=== PATIENT | male | born 1995 | race Caucasian/White ===

== ENCOUNTER 2017-12-03 17:09 | Emergency (ER) | payer OTHER ==
[2017-12-03] MEDS ORDERED: EPINEPHrine 1 MG/ML AMP IM STA (17:24)
[2017-12-03] MEDS ORDERED: DEXAMETHASONE 10 MG/ML VIAL PO STA (17:24)
--- NOTE | 2017-12-03 17:26 | ED Physician Documentation ---
History of Present Illness - Stated complaint Stated Complaint: BEE STING - LIP - Chief complaint Chief Complaint: Allergic Rx - History obtained from History obtained from: Patient - History of Present Illness Timing: Prior to arrival (40 minutes), Today - Additonal information Additional information: 22-year-old male was stung in the lip by a bee has massive swelling of his lip he is now developed red rash over his arms and chest and he is beginning to feel some constriction in his throat. He took 2 Benadryl with this. This happened approximately 40-60 minutes prior to coming to the emergency department. He has had some reaction to a bee sting when he was 11 years old. He is uncertain but the bee looked like it might be vespula vulgaris or the common wasp. Review of Systems Constitutional: denies: Fever Eyes: denies: Decreased vision Ears: denies: Ear pain Nose: denies: Rhinorrhea / runny nose, Congestion Throat: denies: Sore throat Cardiac: denies: Chest pain / pressure Respiratory: denies: Dyspnea, Cough GI: denies: Nausea, Vomiting PD PAST MEDICAL HISTORY - Present Medications Home Medications: Ambulatory Orders Medication Instructions Recorded Confirmed Epinephrine [Epipen 2-Cayden] 0.3 mg IJ ONCE PRN #2 auto.injct 12/03/17 PD ED PE NORMAL - Vitals Vital signs reviewed: Yes (hypertensive ) - General General: Alert and oriented X 3, No acute distress, Well developed/nourished - HEENT HEENT: Atraumatic, PERRL, EOMI, Other (obvious upper lip swelling is dramatic ) - Neck Neck: Supple, no meningeal sign, No bony TTP - Cardiac Cardiac: RRR, No murmur - Respiratory Respiratory: No respiratory distress, Other (fine wheezes bilaterally ) - Abdomen Abdomen: Soft, Non tender - Derm Derm: Normal color, Warm and dry, Other (urticaria is present on the limbs) - Extremities Extremities: No deformity - Neuro Neuro: No motor deficit, No sensory deficit Eye Opening: Spontaneous Motor: Obeys Commands Verbal: Oriented GCS Score: 15 - Psych Psych: Normal mood, Normal affect Results - Vitals Vitals: Vital Signs - 24 hr 12/03/17 17:19 Temperature 36.9 C Heart Rate 98 Respiratory 20 Rate Blood Pressure 158/83 H O2 Saturation 98 Oxygen O2 Source Room air PD MEDICAL DECISION MAKING - ED course Complexity details: considered differential, d/w patient ED course: This 22-year-old male has been envenomed by vespula vulgaris and has had a reaction to include massive swelling of the upper lip, a whole body rash and some fine wheezing. He has taken 50 mg of Benadryl prior to coming to the emergency department and here in the emergency department he is immediately given epinephrine 0.3 mg IM and dexamethasone 10 mg orally. He has some improvement with this. He is instructed to take Benadryl 25-50 mg every 6 hours for the next 2 days. Departure - Departure Disposition: 01 Home, Self Care Clinical Impression: Bee sting reaction Qualifiers: Encounter type: initial encounter Injury intent: accidental or unintentional Qualified Code(s): T63.441A - Toxic effect of venom of bees, accidental ( unintentional), initial encounter Condition: Stable Instructions: ED Bite Sting Insect Gen Allergic React Follow-Up: [facility] [Provider Group] Prescriptions: Epinephrine [Epipen 2-Cayden] 0.3 mg IJ ONCE PRN #2 auto.injct PRN Reason: bee sting reaction
[2017-12-03] MEDS ORDERED: EPINEPHrine 1 MG/ML AMP ONE (17:35)
[2017-12-03 18:11] VITALS: BP 160/69
== END 2017-12-03 18:11 | disposition home or self-care (01) ==
LOC: ED 17:09
DX: T63.461A Toxic effect of venom of wasps, accidental (unintentional), initial encounter (principal); L50.0 Allergic urticaria; R22.0 Localized swelling, mass and lump, head; R06.2 Wheezing
CPT/HCPCS: 96372; 99283

== ENCOUNTER 2018-11-28 16:21 | Outpatient (CLI) | payer OTHER | END 2018-11-28 16:22 | disposition critical access hospital (66) | LOC: EMS 16:21 | PROVIDERS: ATTEND Surgery | DX: S06.9X9A Unspecified intracranial injury with loss of consciousness of unspecified duration, initial encounter (principal); S49.91XA Unspecified injury of right shoulder and upper arm, initial encounter; V29.9XXA Motorcycle rider (driver) (passenger) injured in unspecified traffic accident, initial encounter; Y92.413 State road as the place of occurrence of the external cause | CPT/HCPCS: A0425; A0429 ==

== ENCOUNTER 2018-11-28 16:35 | Emergency (ER) | payer OTHER ==
[2018-11-28] MEDS ORDERED: TETANUS/DIPHTHERIA/PERTUSSIS 0.5 ML SYRINGE IM ONE (16:41)
[2018-11-28] MEDS ORDERED: KETOROLAC 30 MG/ML VIAL IVP STA (16:41)
[2018-11-28 17:00] LABS: BASOPHILS # (AUTO) 0.1 10^3/uL (0.0-0.1); BASOPHILS % (AUTO) 0.7 %; EOSINOPHILS # (AUTO) 0.2 10^3/uL (0.0-0.7); EOSINOPHILS % (AUTO) 1.7 %; HGB - HEMOGLOBIN 16.3 g/dL (14.0-18.0); LYMPHOCYTES # (AUTO) 3.9 10^3/uL (1.5-3.5); LYMPHOCYTES % (AUTO) 39.2 %; MEAN CORPUSCULAR HEMOGLOBIN 29.9 pg (27.0-31.0); MEAN CORPUSCULAR HGB CONC 33.7 g/dL (32.0-36.0); MEAN CORPUSCULAR VOLUME 88.5 fL (80.0-94.0); MONOCYTES # (AUTO) 0.7 10^3/uL (0.0-1.0); MONOCYTES % (AUTO) 6.7 %; NEUTROPHILS # (AUTO) 5.2 10^3/uL (1.5-6.6); NEUTROPHILS % (AUTO) 51.7 %; PLT - PLATELET COUNT 280 10^3/uL (130-450); RED BLOOD COUNT 5.46 10^6/uL (4.70-6.10); RED CELL DISTRIBUTION WIDTH 13.1 % (12.0-15.0)
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
[2018-11-28 17:22] LABS: ALBUMIN 4.9 g/dL (3.2-5.5); ALBUMIN/GLOBULIN RATIO 1.4 (1.0-2.2); BILIRUBIN,TOTAL 0.8 mg/dL (0.2-1.0); CALCIUM 9.8 mg/dL (8.5-10.3); CREATININE 1.2 mg/dL (0.6-1.2); TOTAL PROTEIN 8.3 g/dL (6.7-8.2)
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
[2018-11-28] MEDS ORDERED: BACITRACIN OINT TOP STA (18:40)
[2018-11-28 18:41] VITALS: BP 179/85
[2018-11-28] MEDS ORDERED: BACITRACIN OINT TOP ONE (18:48)
== END 2018-11-28 19:05 | disposition home or self-care (01) ==
LOC: EDUNIT# → ED 16:35
DX: S40.811A Abrasion of right upper arm, initial encounter (principal); S40.021A Contusion of right upper arm, initial encounter; S30.811A Abrasion of abdominal wall, initial encounter; V28.4XXA Motorcycle driver injured in noncollision transport accident in traffic accident, initial encounter; Y92.410 Unspecified street and highway as the place of occurrence of the external cause; Z23 Encounter for immunization
CPT/HCPCS: 36415; 71045; 73060; 80053; 83690; 85025; 90471; 90715; 96374; 99283; 99284; A9270